=== PATIENT | male | born 1995 | race Caucasian/White ===

== ENCOUNTER 2017-12-31 17:22 | Emergency (ER) | payer SELFPAY ==
[~2017-12-31] VITALS: Ht 185.4 cm; Wt 118.0 kg
[2017-12-31 17:27] VITALS: BP 129/71; PULSE 85; RESP 20; TEMP 98.9; O2SAT 97
[2017-12-31] MEDS ORDERED: AMOX500C PO (18:44)
--- NOTE | 2017-12-31 18:44 | PD ---
HPI Chief Complaint: ENT Complaint Time Seen by Provider: 18:37 Travel History International Travel<30 days: No Contact w/Intl Traveler<30days: No Traveled to known affect area: No History of Present Illness HPI 22-year-old male presents to the emergency department with complaint of sore throat since Thursday, and says it is mainly right-sided. Denies lump in throat, difficulty swallowing, unusual drooling. Denies fever, vomiting, headache, nasal congestion, cough. Says the pain radiates to his right ear, otherwise denies ear pain. Reports right anterior cervical lymphadenopathy tenderness. No others with similar symptoms. Has been taking NyQuil and DayQuil for symptom management with some relief of symptoms. Rates pain 5/10. Worse with yawning, swallowing. Reports history of tonsillectomy. Does like a year otherwise denies significant past medical history. No primary care provider. No known allergies. Has no other medical complaints. No other modifying factors or associated signs and symptoms. PFSH Social History Tobacco Use: No Allergies-Medications (Allergen,Severity, Reaction): Coded Allergies: No Known Allergies (Unverified , 12/31/17) Reported Meds & Prescriptions Reported Meds & Active Scripts Active Amoxicillin 500 Mg Cap 500 Mg PO BID 10 Days Review of Systems Except as stated in HPI: all other systems reviewed are Neg Physical Exam Narrative GENERAL: Well-nourished, well-developed patient, in no acute distress; afebrile , nontoxic-appearing SKIN: Warm and dry. No rash. HEAD: Atraumatic. Normocephalic. EYES: Pupils equal and round. No scleral icterus. No injection or drainage. ENT: Mucosa pink and dry. Oropharynx with erythema and exudate noted; no edema. No Uvular edema. No uvular, palatal, or tonsillar deviation. Airway patent. EARS: Bilateral pinnae and external canals appear within normal limits. Bilateral tympanic membranes without erythema, dullness or perforation.. NECK: Trachea midline. Right Anterior cervical lymphadenopathy and tenderness. CARDIOVASCULAR: Regular rate RESPIRATORY: No accessory muscle use. GASTROINTESTINAL:Rounded. MUSCULOSKELETAL: No obvious deformities. No clubbing. No cyanosis. No edema. NEUROLOGICAL: Awake and alert. Oriented 3. No obvious cranial nerve deficits. Motor grossly within normal limits. Normal speech. Moves all extremities. PSYCHIATRIC: Appropriate mood and affect; insight and judgment normal. Data Data Last Documented VS Vital Signs Date Time Temp Pulse Resp B/P (MAP) Pulse Ox O2 Delivery O2 Flow Rate FiO2 12/31/17 19:24 76 18 152/77 (102) 99 12/31/17 19:23 Room Air 12/31/17 17:27 98.9 Orders Orders Group A Rapid Strep Screen (12/31/17 18:42) Amoxicillin (Trimox) (12/31/17 18:45) Ed Discharge Order (12/31/17 18:44) Strep Culture (Group A) (12/31/17 19:00) MDM Medical Decision Making Medical Screen Exam Complete: Yes Emergency Medical Condition: Yes Medical Record Reviewed: Yes Differential Diagnosis Exudative pharyngitis, strep pharyngitis, viral pharyngitis, less likely peritonsillar abscess Narrative Course 22-year-old male physical exam consistent with exudative pharyngitis. He is afebrile nontoxic pain. Denies fever, vomiting. Has history of tonsillectomy. There is some exudate noted in his oropharynx and some erythema. He has some anterior cervical lymphadenopathy and tenderness to the right side. No signs of peritonsillar abscess. No unusual drooling or difficulty swallowing. Amoxicillin administered in the ER. Amoxicillin prescribed for home. Instructed patient to follow up with primary care provider. Patient verbalizes understanding and agreement with treatment plan. Patient is medically cleared and stable for discharge. Discussed reasons to return to the emergency department. Patient agrees with treatment plan. The patients vital signs are stable and the patient is stable for outpatient follow-up and treatment. Patient discharged home, stable and in no acute distress. Diagnosis Primary Impression: Exudative pharyngitis Referrals: Primary Care Physician Patient Instructions: General Instructions, Pharyngitis (ED) Additional Instructions: Take Antibiotics as prescribed and complete full course of antibiotics Throw away and change your toothbrush 24 hours after starting antibiotics Get plenty of sleep/rest Rest your voice Drink plenty of fluids to prevent dehydration Use warm saltwater gargles to soothe throat pain Use an air humidifier/turn off ceiling fans Use throat lozenges as needed for sore throat Use ibuprofen or acetaminophen as needed to relieve pain and fever Follow-up with your primary care provider within 2-4 days Return immediately to the emergency department with worsening of symptoms Med/Other Pt SpecificInfo: Prescription(s) given Scripts Amoxicillin (Amoxicillin) 500 Mg Cap 500 MG PO BID for Infection for 10 Days, #20 CAP 0 Refills Prov: Jenn Rodriguez 12/31/17 Disposition: 01 DISCHARGE HOME Condition: Stable Jenn Rodriguez December 31, 2017 18:44
[2017-12-31] MEDS ORDERED: AMOXICILLIN (TRIHYDRATE) 500 MG CAP PO ONE (18:45)
[2017-12-31 19:23] VITALS: BP 152/77; PULSE 76; RESP 18; O2SAT 99
[2017-12-31 19:24] VITALS: BP 152/77
== END 2017-12-31 19:25 | disposition home or self-care (01) ==
LOC: NEPD 17:22
DX: J02.9 Acute pharyngitis, unspecified (principal)
CPT/HCPCS: 87081; 87880; 99283